=== PATIENT | female | born 1995 | race African-American/Black ===

== ENCOUNTER 2017-07-05 12:12 | Emergency (ER) | payer MEDICAID ==
[~2017-07-05] VITALS: Ht 175.3 cm; Wt 68.0 kg
[2017-07-05] MEDS ORDERED: ALBUTEROL SULF8.5 GM INH (12:23)
[2017-07-05] MEDS ORDERED: DULERA 200 MCG/13 GM IH (12:23)
[2017-07-05] MEDS ORDERED: FLONASE ALLERG9.9 ML NS (12:52)
[2017-07-05] MEDS ORDERED: SUDAFED 12 HOU120 M1 PO (12:52)
[2017-07-05] MEDS ORDERED: ROBAXIN-750750 MG PO (12:52)
[2017-07-05] MEDS ORDERED: IBUPROFEN600 MG ORAL (12:52)
[2017-07-05 13:05] VITALS: BP 119/75
--- NOTE | 2017-07-05 18:58 | Emergency Room Report ---
History of Present Illness General Chief Complaint: Headache Source: Patient Present Illness [facility] The patient is a 22-year-old female presenting for headache for the past 2 weeks. She states that this is on and off. She also admits to feeling a facial fullness. Pain is stated to be 8/10 dull ache primarily fell to the left moravian region. No known provoking factors. She uses Motrin with good pain relief. She also admits to nasal congestion 22 seasonal allergies. She has not taken any medications for this. She denies any sick contacts recent travel. She denies any other symptoms including nausea, vomiting, fever, chills, neck pain or stiffness, shortness of breath, dizziness, blurred vision, sore throat, cough Allergies: Coded Allergies: CINNAMON (Verified Allergy, Unknown, 07/05/17) Patient History Past Medical History: see triage record Pertinent Family History: none Last Menstrual Period: Two weeks ago Reviewed Nursing Documentation: PMH: Agreed, PSxH: Agreed Nursing Documentation-PMH Hx Asthma: Yes Review of Systems All Other Systems: negative except mentioned in HPI Physical Exam Vital Signs Date Time Temp Pulse Resp B/P (MAP) Pulse Ox O2 Delivery O2 Flow Rate FiO2 07/05/17 12:17 98.1 89 16 134/83 100 Room Air Sp02 EP Interpretation: reviewed, normal General Appearance: no apparent distress, alert, GCS 15, non-toxic Head: normocephalic, atraumatic Eyes: bilateral eye normal inspection, bilateral eye PERRL ENT: hearing grossly normal, normal pharynx, normal voice, TMs + canals normal , uvula midline, nasal congestion Neck: full range of motion, supple/symm/no masses, tender lateral - L Respiratory: chest non-tender, lungs clear, normal breath sounds, no accessory muscle use, speaking full sentences Cardiovascular #1: regular rate, rhythm, no edema Musculoskeletal: back normal, gait/station normal, normal range of motion Neurologic: alert, oriented x3, responsive, motor strength/tone normal, sensory intact, speech normal Psychiatric: judgement/insight normal, memory normal, mood/affect normal, no suicidal/homicidal ideation Skin: normal color, no rash, warm/dry, well hydrated Lymphatic: no adenopathy Medical Decision Making PA Attestation Dr. Ca is my supervising physician. Patient management was discussed with my supervising physician Diagnostic Impression: Primary Impression: Rhinitis, allergic Qualified Codes: J30.2 - Other seasonal allergic rhinitis Additional Impressions: Muscle strain Acute maxillary sinusitis Qualified Codes: J01.00 - Acute maxillary sinusitis, unspecified ER Course The patient is a 22-year-old female presenting for headaches. Differential diagnoses include but not limited to Migraine, tension headache, sinusitis, rhinitis, among others PE: No apparent distress. mild TTP over maxillary or frontal sinuses. Lungs CTA bilat. No wheezing. No accessory muscle use. Heart: RRR, no abnormal heart sounds Ears: external auditory canal clear. Non erythematous. Bilat TM intact. Cone of light present bilat. No bulging of TM. No serous fluid seen. + nasal D/C no cervical lymphad No tonsillar exudate. Uvula midline.Oropharynx non erythematous Neck: TTP over the L paraspinal muscles only. Urine is negative The patient will be discharged home with prescriptions for robaxin, motrin, flonase, and sudafed. ER precautions given Laboratory Tests Test 07/05/17 12:30 Urine HCG, Qualitative Negative Lab Results Impression Urine preg: Neg Last Vital Signs Date Time Temp Pulse Resp B/P (MAP) Pulse Ox O2 Delivery O2 Flow Rate FiO2 07/05/17 13:05 74 19 119/75 100 Room Air 07/05/17 13:05 98.2 Status: improved Disposition: HOME, SELF-CARE Condition: Improved Scripts Methocarbamol* (ROBAXIN-750*) 750 Mg Tablet 750 MG PO TID, #21 TAB 0 Refills Prov: TERZIAN,BABAK P.A. 07/05/17 Ibuprofen* (MOTRIN*) 600 Mg Tablet 600 MG ORAL Q8H Y for For Pain, #30 TAB 0 Refills Prov: TERZIAN,BABAK P.A. 07/05/17 Pseudoephedrine Hcl (SUDAFED 12 HOUR) 120 Mg Tablet.er 120 MG PO Q12HR, #20 TAB Prov: TERZIAN,BABAK P.A. 07/05/17 Fluticasone Propionate (Flonase Allergy Relief) 9.9 Ml [place].susp 1 SPRAY NS DAILY, #10 ML Prov: TERZIAN,BABAK P.A. 07/05/17 Referrals: [facility] (PCP) Patient Instructions: General Headache Without Cause, Muscle Strain, Allergic Rhinitis Additional Instructions: I discussed my findings with the patient. All questions and concerns have been answered. Treatment and medication compliance have been addressed. I advised the patient that they need to follow up with PMD in 3-5 days. Return to ED if symptoms worsen, new symptoms arise, or if needed for any reason. Patient verbalized understanding of discharge instructions. BABAK GALAN Jul 05, 2017 18:58
== END 2017-07-05 13:05 | disposition home or self-care (01) ==
LOC: EMR 12:49
DX: J30.2 Other seasonal allergic rhinitis (principal); J01.00 Acute maxillary sinusitis, unspecified; T14.8XXA Other injury of unspecified body region, initial encounter; X58.XXXA Exposure to other specified factors, initial encounter; Y93.9 Activity, unspecified; Y92.9 Unspecified place or not applicable; Z88.8 Allergy status to other drugs, medicaments and biological substances
CPT/HCPCS: 81025; 99284

== ENCOUNTER 2018-09-19 17:31 | Emergency (ER) | payer MEDICAID ==
[~2018-09-19] VITALS: Ht 172.7 cm; Wt 77.1 kg
[~2018-09-19 17:31] MED LIST: ALBUTEROL SULF8.5 GM INH; DULERA 200 MCG/13 GM IH; FLONASE ALLERG9.9 ML NS; IBUPROFEN600 MG ORAL; ROBAXIN-750750 MG PO; SUDAFED 12 HOU120 M1 PO
[2018-09-19 17:40] VITALS: BP 120/77
[2018-09-19] MEDS ORDERED: PRENATAL 19 TA1 EAC1 PO (17:41)
[2018-09-19 18:55] LABS: ANION GAP 12 mmol/L (5-15); BLOOD UREA NITROGEN 8 mg/dL (7-18); CALCIUM 8.7 MG/DL (8.5-10.1); CARBON DIOXIDE 21 MMOL/L (21-32); CHLORIDE 104 MMOL/L (98-107); CREATININE 0.6 MG/DL (0.55-1.30); POTASSIUM 3.8 MMOL/L (3.5-5.1); SODIUM 137 MMOL/L (136-145)
[2018-09-19 18:59] LABS: ALANINE AMINOTRANSFERASE 19 U/L (12-78); ALBUMIN 2.9 G/DL (3.4-5.0); ALBUMIN/GLOBULIN RATIO 0.7 (1.0-2.7); ALKALINE PHOSPHATASE 56 U/L (46-116); ASPARTATE AMINO TRANSFERASE 17 U/L (15-37); BILIRUBIN,TOTAL 0.2 MG/DL (0.2-1.0)
[2018-09-19] MEDS ORDERED: TYLENOL EXTRA500 MG ORAL (19:07)
--- NOTE | 2018-09-19 19:07 | Emergency Room Report ---
History of Present Illness General Chief Complaint: Pain Source: Patient Present Illness HPI 23-year-old female presents to the emergency department complaining of 3 out of 10 in severity pain to the lateral right lower chest area times one week. Patient is 30 weeks she reports that she has regular visits with her OB /[employer] and has had no complications thus far. Patient denies fevers, chills, cough, shortness of breath, dyspnea or chest pain otherwise. has no significant past medical history denies any aggravating or relieving factors. Patient describes intermittent episodes of sharp pain that last less than 30 seconds. Pt. denies strenuous activities. pt. reports episodes two to three times a day. Allergies: Coded Allergies: CINNAMON (Verified Allergy, Unknown, 07/05/17) Patient History Past Medical History: see triage record Past Surgical History: none Pertinent Family History: none Last Menstrual Period: 02/22/2018 Now: Yes : 1 Para: 0 Reviewed Nursing Documentation: PMH: Agreed; PSxH: Agreed Nursing Documentation-PMH Past Medical History: No History, Except For Hx Asthma: Yes Review of Systems All Other Systems: negative except mentioned in HPI Physical Exam Vital Signs Date Time Temp Pulse Resp B/P (MAP) Pulse Ox O2 Delivery O2 Flow Rate FiO2 09/19/18 17:35 98.8 87 16 120/77 100 Room Air Sp02 EP Interpretation: reviewed, normal General Appearance: no apparent distress, alert, GCS 15, non-toxic Head: normocephalic, atraumatic Eyes: bilateral eye normal inspection, bilateral eye PERRL ENT: hearing grossly normal, normal voice Neck: full range of motion Respiratory: lungs clear, normal breath sounds, speaking full sentences, other - TTP to the intercostal musculature of lateral aspect of right 7 & 8th ribs. ttp posteriorly in same area as well. pain is reproducible with palpation Cardiovascular #1: regular rate, rhythm, no edema Gastrointestinal: normal bowel sounds, non tender, soft, no guarding, other - gravid Rectal: deferred Genitourinary: normal inspection, no CVA tenderness Musculoskeletal: back normal, gait/station normal, normal range of motion, non- tender Neurologic: alert, oriented x3, responsive, motor strength/tone normal, sensory intact, speech normal, grossly normal Psychiatric: judgement/insight normal Skin: normal color, no rash, warm/dry, well hydrated Lymphatic: no adenopathy Medical Decision Making PA Attestation Dr. vance is my supervising Physician whom patient management has been discussed with. Diagnostic Impression: Primary Impression: Muscle strain ER Course 23-year-old female presents to the emergency department complaining of 3 out of 10 in severity pain to the lateral right lower chest area times one week. Patient is 30 weeks she reports that she has regular visits with her OB /[employer] and has had no complications thus far. Patient denies fevers, chills, cough, shortness of breath, dyspnea or chest pain otherwise. has no significant past medical history denies any aggravating or relieving factors. Patient describes intermittent episodes of sharp pain that last less than 30 seconds. Pt. denies strenuous activities. pt. reports episodes two to three times a day. Ddx considered but are not limited to Fracture, dislocation, contusion, Sprain/ Strain/Spasm, PNA, gall stone, pancreatitis just to name a few. Vital signs: are WNL, pt. is afebrile H&PE are most consistent with musculoskeletal etiology, ORDERS: - X-ray not warranted at this time. pt. also . -CMP & Lipase: WNL ED INTERVENTIONS: - Pt declines Tylenol -I do not identify an emergent condition at this time pain is reproducible with palpation and located in the ribcage not the abdomen. With current presentation , pt. is stable for close outpatient follow up and conservative treatment. D/ w pt. to return promptly to ED with worsening or new symptoms.- Pt. verbalizes' understanding and agreement with proposed treatment plan.proposed treatment plan. D/w patient that it is imperative she follow up with an OBGYN within 48 hours for continuity of care as she is 30 weeks . DISCHARGE: At this time pt. is stable for d/c to home. Will provide printed patient care instructions, and any necessary prescriptions. Care plan and follow up instructions have been discussed with the patient prior to discharge. Labs Test 09/19/18 18:00 Sodium Level 137 MMOL/L (136-145) Potassium Level 3.8 MMOL/L (3.5-5.1) Chloride Level 104 MMOL/L (98-107) Carbon Dioxide Level 21 MMOL/L (21-32) Anion Gap 12 mmol/L (5-15) Blood Urea Nitrogen 8 mg/dL (7-18) Creatinine 0.6 MG/DL (0.55-1.30) Estimat Glomerular Filtration Rate > 60 mL/min (>60) Glucose Level 72 MG/DL (74-106) Calcium Level 8.7 MG/DL (8.5-10.1) Total Bilirubin 0.2 MG/DL (0.2-1.0) Aspartate Amino Transf (AST/SGOT) 17 U/L (15-37) Alanine Aminotransferase (ALT/SGPT) 19 U/L (12-78) Alkaline Phosphatase 56 U/L (46-116) Total Protein 6.9 G/DL (6.4-8.2) Albumin 2.9 G/DL (3.4-5.0) Globulin 4.0 g/dL Albumin/Globulin Ratio 0.7 (1.0-2.7) Lipase 204 U/L (73-393) Last Vital Signs Date Time Temp Pulse Resp B/P (MAP) Pulse Ox O2 Delivery O2 Flow Rate FiO2 09/19/18 17:40 98.8 88 16 120/77 100 Room Air Disposition: HOME, SELF-CARE Condition: Stable Scripts Acetaminophen* (TYLENOL EXTRA STRENGTH*) 500 Mg Tablet 500 MG ORAL Q6H, #30 TAB 0 Refills Prov: Ami Ferguson 09/19/18 Referrals: [facility] (PCP) Patient Instructions: Muscle Strain, [id number] Additional Instructions: Take medications as directed. Follow up with a OBGYN within 3 days, even if your symptoms have resolved. Return sooner to ED if new symptoms occur, or current symptoms become worse. - Please note that this Emergency Department Report was dictated using [facility] [employer] [facility] [employer] die picker technology software, occasionally this can lead to erroneous entry secondary to interpretation by the dictation equipment. Ami Ferguson Sep 19, 2018 19:07
[2018-09-19 19:16] VITALS: BP 130/68
== END 2018-09-19 19:16 | disposition home or self-care (01) ==
LOC: EMR 18:05
DX: S29.011A Strain of muscle and tendon of front wall of thorax, initial encounter (principal); O26.93 Pregnancy related conditions, unspecified, third trimester; Z3A.30 30 weeks gestation of pregnancy; Z91.018 Allergy to other foods
CPT/HCPCS: 36415; 80053; 83690; 99283